=== PATIENT | male | born 1990 | race Caucasian/White ===

== ENCOUNTER 2023-02-08 02:00 | Emergency (ER) | payer MEDICAID ==
[~2023-02-08] VITALS: Ht 182.9 cm; Wt 122.5 kg
[2023-02-08 02:19] VITALS: BP 131/77
--- NOTE | 2023-02-08 02:22 | NUR ---
to bed ambulatory
--- NOTE | 2023-02-08 02:35 | NUR ---
COVID AND FLU SWABS COLLECTED AND GIVEN TO
--- NOTE | 2023-02-08 02:53 | NUR ---
Dr. Silver examining patient.
[2023-02-08] MEDS ORDERED: MELA3TER PO (03:30)
--- NOTE | 2023-02-08 03:40 | NUR ---
Patient discharged with v/s stable. Written and verbal after care instructions given and explained. Patient alert, oriented and verbalized understanding of instructions. Ambulatory with steady gait. All questions addressed prior to discharge. ID band removed. Patient advised to follow up with PMD. Rx of melatonin given. Opportunity to ask questions provided and answered.
== END 2023-02-08 03:40 | disposition home or self-care (01) ==
LOC: MED 02:00
DX: B34.9 Viral infection, unspecified (principal); Z20.822 Contact with and (suspected) exposure to COVID-19; F32.9 Major depressive disorder, single episode, unspecified; Z79.899 Other long term (current) drug therapy; Z88.6 Allergy status to analgesic agent
CPT/HCPCS: 99283